=== PATIENT | female | born 1960 | race Caucasian/White ===

== ENCOUNTER 2021-02-18 11:15 | Outpatient (CLI) | payer OTHER, SELFPAY ==
--- NOTE | 2021-02-18 11:19 | MM_ITS ---
WS: [id number] DIAGNOSTIC BILATERAL DIGITAL MAMMOGRAM WITH CAD HISTORY: HX OF BREAST CA COMPARISON: None available. Unable to obtain access to prior mammographies. TECHNIQUE: Bilateral craniocaudad, mediolateral oblique, and mediolateral views are submitted. Comput er aided detection utilized. Breast composition: There are scattered areas of fibroglandular density. Postsurgical site in the upp er outer quadrant posteriorly of the LEFT breast. There is distortion and clips and soft tissue. With out comparing to the prior studies cannot evaluate for recurrent mass. As we are unable to obtain tho se prior outside imaging studies short-term follow-up will be recommended. The RIGHT breast is negati ve. MM/[place] [id number] IMPRESSION: BI-RADS: 3-Probably Benign FOLLOW UP: 6 Month Follow-up Recommend diagnostic LEFT mammogram follow-up in 6 months. As we are unable to obtain the prior mammograms for comparison the post operative changes in the LE FT breast need to be evaluated in 6 months for any additional change. If the pa tient is able to access these prior imaging studies for comparison an addendum can be performed.
== END 2021-02-18 11:16 | disposition home or self-care (01) ==
LOC: RADSHAW 11:18
PROVIDERS: Visit Provider Nurse Practitioner Family
DX: Z85.3 Personal history of malignant neoplasm of breast (principal)
CPT/HCPCS: 77066

== ENCOUNTER 2021-10-15 09:54 | Outpatient (CLI) | payer MEDICAID, SELFPAY ==
--- NOTE | 2021-10-15 10:00 | MM_ITS ---
WS: [id number] LEFT DIGITAL MAMMOGRAPHY WITH CAD CLINICAL INFORMATION: R92.8 - Other abnormal and inconclusive findings on diagn... COMPARISON: February 18, 2021 and outside examination November 07, 2019 TECHNIQUE: 6 views of the left breast were obtained. FINDINGS: Scattered fibroglandular densities of the left breast. Vascular calcification. Postoperative lumpecto my upper outer quadrant LEFT breast with parenchymal fibrosis. This is similar in appearance to the p rior examinations. Ultrasound will be obtained of this area. No other significant interval changes. Vascular calcification. Surgical clips LEFT axilla and about t he lumpectomy site. ULTRASOUND BREAST LEFT TECHNIQUE: Ultrasound left breast focused area of concern. CLINICAL INFORMATION: R92.8 - Other abnormal and inconclusive findings on diagn... FINDINGS: Ultrasound LEFT breast at the 12-1 o'clock positions at the surgical scar. No evidence of suspicious underlying parenchymal abnormality. Normal-appearing scar tissue. Small fluid collection measuring 1. 1 x 1.0 x 0.9 cm near the surgical scar likely postoperative seroma. This has a benign appearance. No cystic or solid lesions to target for biopsy. Recommend return to annual diagnostic mammography. MM/[place] [id number] IMPRESSION: BI-RADS: 2-Benign FOLLOW UP: 1 Year Follow-up Recommend return to annual diagnostic mammography.
--- NOTE | 2021-10-15 10:44 | US_ITS ---
WS: [id number] LEFT DIGITAL MAMMOGRAPHY WITH CAD CLINICAL INFORMATION: R92.8 - Other abnormal and inconclusive findings on diagn... COMPARISON: February 18, 2021 and outside examination November 07, 2019 TECHNIQUE: 6 views of the left breast were obtained. FINDINGS: Scattered fibroglandular densities of the left breast. Vascular calcification. Postoperative lumpecto my upper outer quadrant LEFT breast with parenchymal fibrosis. This is similar in appearance to the p rior examinations. Ultrasound will be obtained of this area. No other significant interval changes. Vascular calcification. Surgical clips LEFT axilla and about t he lumpectomy site. ULTRASOUND BREAST LEFT TECHNIQUE: Ultrasound left breast focused area of concern. CLINICAL INFORMATION: R92.8 - Other abnormal and inconclusive findings on diagn... FINDINGS: Ultrasound LEFT breast at the 12-1 o'clock positions at the surgical scar. No evidence of suspicious underlying parenchymal abnormality. Normal-appearing scar tissue. Small fluid collection measuring 1. 1 x 1.0 x 0.9 cm near the surgical scar likely postoperative seroma. This has a benign appearance. No cystic or solid lesions to target for biopsy. Recommend return to annual diagnostic mammography. US/US breast LT limited* [id number] IMPRESSION: BI-RADS: 2-Benign FOLLOW UP: 1 Year Follow-up Recommend return to annual diagnostic mammography.
== END 2021-10-15 09:55 | disposition home or self-care (01) ==
PROVIDERS: PCP Nurse Practitioner Family; Visit Provider Nurse Practitioner Family
DX: R92.8 Other abnormal and inconclusive findings on diagnostic imaging of breast (principal)
CPT/HCPCS: 76642; 77065

== ENCOUNTER → 2021-12-30 10:21 | Outpatient (BNVA) | payer MEDICAID, SELFPAY | PROVIDERS: PCP Nurse Practitioner Family; Visit Provider Nurse Practitioner Family | DX: R29.898 Other symptoms and signs involving the musculoskeletal system (principal); S69.91XA Unspecified injury of right wrist, hand and finger(s), initial encounter; R53.83 Other fatigue; Z13.6 Encounter for screening for cardiovascular disorders; E55.9 Vitamin D deficiency, unspecified | CPT/HCPCS: 73130; 80053; 80061; 82306; 84443; 85025; 86000; 86618; 86666; 86757 ==

== ENCOUNTER → 2022-05-12 09:27 | Outpatient (BNVA) | payer MEDICAID, SELFPAY | PROVIDERS: PCP Nurse Practitioner Family; Visit Provider Nurse Practitioner Family | DX: R41.3 Other amnesia (principal); R53.83 Other fatigue | CPT/HCPCS: 82607 ==

== ENCOUNTER → 2022-07-15 13:50 | Outpatient (BNVA) | payer OTHER, SELFPAY | PROVIDERS: PCP Nurse Practitioner Family; Visit Provider Nurse Practitioner | DX: R53.83 Other fatigue (principal); R29.90 Unspecified symptoms and signs involving the nervous system | CPT/HCPCS: 82728; 83540; 83550 ==

== ENCOUNTER → 2023-01-26 08:31 | Outpatient (BNVA) | payer MEDICAID, SELFPAY | PROVIDERS: PCP Nurse Practitioner Family; Visit Provider Nurse Practitioner Family | DX: E53.8 Deficiency of other specified B group vitamins (principal); W57.XXXA Bitten or stung by nonvenomous insect and other nonvenomous arthropods, initial encounter; H57.02 Anisocoria | CPT/HCPCS: 82607 ==

== ENCOUNTER 2023-03-12 09:31 | Outpatient (CLI) | payer MEDICAID, SELFPAY ==
--- NOTE | 2023-03-12 09:45 | MR_ITS ---
WS: [id number] MRI HEAD WITH CONTRAST TECHNIQUE: Sagittal T1, T2 axial, T2 axial FLAIR, axial susceptibility weighted imaging, axial diffus ion weighted images, and coronal T2 images were obtained. Pre and post-T1 axial and post T1 coronal i mages. ADC and FSPGR images. CLINICAL INFORMATION: HISTORY OF HEAD INJURY WITHOUT FRACTURE OF SKULL COMPARISON: None. FINDINGS: No evidence of restricted diffusion to suggest acute ischemia. Ventricular system and basal cisterns are patent. No suspicious intracranial signal abnormalities. Moderate parenchymal volume loss. No hem osiderin on susceptibly weighted images. Normal optic chiasm and pituitary infundibulum. Temporal lob es hippocampal formations are normal in appearance. Normal posterior fossa. Normal vascular flow voids at the skull base. No extra-axial fluid collection s. No evidence of mass or mass effect. Paranasal sinuses and mastoid air cells well aerated. Normal p osterior nasopharynx. No abnormal gadolinium enhancement. Normal optic chiasm and pituitary infundibu lum. Normal dural venous sinuses. No other suspicious findings. MR/MR head wo/w con [id number] IMPRESSION: 1. No evidence of restricted diffusion to suggest acute ischemia. 2. No suspicious intracranial signal abnormalities. Moderate parenchymal volum e loss. 3. No hemosiderin on the susceptibly weighted images. 4. No abnormal gadolinium enhancement. 5. No other suspicious findings.
[2023-03-12] MEDS: gadobenate dimeglumine 20 mL vial IV (10:42)
== END 2023-03-12 09:32 | disposition home or self-care (01) ==
PROVIDERS: PCP Nurse Practitioner; Visit Provider Nurse Practitioner
DX: Z87.828 Personal history of other (healed) physical injury and trauma (principal); H57.04 Mydriasis; Z85.3 Personal history of malignant neoplasm of breast
CPT/HCPCS: 70553; A9577

== ENCOUNTER → 2023-06-08 09:17 | Outpatient (BNVA) | payer MEDICAID, SELFPAY | PROVIDERS: PCP Nurse Practitioner; Visit Provider Podiatrist Foot & Ankle Surgery | DX: M24.572 Contracture, left ankle; M72.2 Plantar fascial fibromatosis | CPT/HCPCS: 73630 ==

== ENCOUNTER 2023-08-11 09:39 | Outpatient (CLI) | payer MEDICAID, SELFPAY ==
--- NOTE | 2023-08-11 09:43 | MM_ITS ---
WS: [id number] DIAGNOSTIC BILATERAL DIGITAL BREAST TOMOSYNTHESIS MAMMOGRAPHY WITH CAD HISTORY: ANNUAL - HX BR CA COMPARISON: 11/07/2019, 02/18/2021, 10/15/2021 TECHNIQUE: Bilateral craniocaudad, mediolateral oblique, and mediolateral views are submitted with to mosynthesis and SM. Computer aided detection utilized. Breast composition: There are scattered areas of fibroglandular density. Prior biopsy site in the pos terior LEFT breast towards 12 01:00. Dystrophic calcifications are progressively. The soft tissue is very similar to the study from 2019. No increasing or recurrent mass identified. RIGHT breast is nega tive. IMPRESSION: MM/[place] [id number] BI-RADS: 2-Benign FOLLOW UP: 1 Year Follow-up
== END 2023-08-11 09:40 | disposition home or self-care (01) ==
LOC: RAD 09:39
PROVIDERS: PCP Nurse Practitioner; Visit Provider Nurse Practitioner
DX: Z85.3 Personal history of malignant neoplasm of breast (principal)
CPT/HCPCS: 77062; G0279

== ENCOUNTER 2024-08-21 10:28 | Outpatient (CLI) | payer MEDICAID, SELFPAY ==
--- NOTE | 2024-08-21 10:30 | MM_ITS ---
WS: [email or web address] DIAGNOSTIC BILATERAL DIGITAL BREAST TOMOSYNTHESIS MAMMOGRAPHY WITH CAD HISTORY: HX OF BREAST CANCER COMPARISON: 08/11/2023, 10/15/2021, 02/18/2021 TECHNIQUE: Bilateral craniocaudad, mediolateral oblique, and mediolateral views are submitted with to mosynthesis and SM. Computer aided detection utilized. Breast composition: There are scattered areas of fibroglandular density. Prior biopsy site posterior LEFT breast in the upper outer quadrant. No recurrent mass identified. Dy strophic calcifications. RIGHT breast is negative. No suspicious calcifications or mass. MM/MM diag BI tomosynthesis [id number] IMPRESSION: BI-RADS: 2 - Benign. FOLLOW UP: 1 Year Follow-up
== END 2024-08-21 10:29 | disposition home or self-care (01) ==
LOC: RAD 10:29
PROVIDERS: PCP Nurse Practitioner; Visit Provider Nurse Practitioner
DX: R92.323 Mammographic fibroglandular density, bilateral breasts (principal); R92.1 Mammographic calcification found on diagnostic imaging of breast; Z85.3 Personal history of malignant neoplasm of breast
CPT/HCPCS: 77062; G0279

== ENCOUNTER 2025-08-09 13:54 | Outpatient (CLI) | payer MEDICARE, SELFPAY ==
--- NOTE | 2025-08-09 14:06 | XR_ITS ---
WS: [email or web address] SCREENING DEXA SCAN Seen CLINICAL INFORMATION: POST MENOPAUSAL COMPARISON: None. FINDINGS: The L1-L4 bone mineral density measures 1.077 g/cm2. This corresponds to a T score score of -0.9 and Z score of 0.6. Left femoral neck bone mineral density measures 1.018 g/cm2. This corresponds to a T score of 0.1 and Z score of 1.2. Right femoral neck bone mineral density measures 1.058 g/cm2. This corresponds to a T score 0.4of and Z score of 1.5. Mean femoral neck bone mineral density measures 1.038 g/cm2. This corresponds to a T score of 0.2 and Z score of 1.3. XR/XR DEXA axial skeleton* [id number] IMPRESSION: Normal bone mineralization lumbar spine approaching osteopenia. Normal bone min eralization femoral necks. Patient's FRAX calculated 10 year probability for major osteoporotic fracture i s 8.5% and osteoporotic hip fracture is 0.8%.
== END 2025-08-09 13:55 | disposition home or self-care (01) ==
LOC: RAD 13:59
PROVIDERS: PCP Nurse Practitioner; Visit Provider Nurse Practitioner
DX: Z13.820 Encounter for screening for osteoporosis (principal); Z78.0 Asymptomatic menopausal state
CPT/HCPCS: 77080

== ENCOUNTER 2025-08-28 10:40 | Outpatient (CLI) | payer MEDICARE, SELFPAY ==
--- NOTE | 2025-08-28 10:49 | MM_ITS ---
WS: [id number] DIAGNOSTIC BILATERAL DIGITAL BREAST TOMOSYNTHESIS MAMMOGRAPHY WITH CAD HISTORY: HISTORY OF BREAST CANCER COMPARISON: 08/21/2024, 08/11/2023, 10/15/2021 TECHNIQUE: Bilateral craniocaudad, mediolateral oblique, and mediolateral views are submitted with tomosynthesis and SM. Computer aided detection utilized. Breast composition: There are scattered areas of fibroglandular density. Postsurgical changes with volume loss and distortion in the upper outer quadrant LEFT breast. Surgical clips are noted in the upper outer quadrant and also in the axilla. Benign calcifications in each breast. No suspicious mass or interval change. No distortion. No grouping of calcifications. MM/MM diag BI tomosynthesis [id number] IMPRESSION: BI-RADS: 2 - Benign. FOLLOW UP: 1 Year Follow-up
== END 2025-08-28 10:41 | disposition home or self-care (01) ==
LOC: RAD 10:42
PROVIDERS: PCP Nurse Practitioner; Visit Provider Nurse Practitioner
DX: Z12.31 Encounter for screening mammogram for malignant neoplasm of breast (principal); Z85.3 Personal history of malignant neoplasm of breast; R92.323 Mammographic fibroglandular density, bilateral breasts
CPT/HCPCS: 77062; G0279